=== PATIENT | male | born 1955 | race Two or more races ===

== ENCOUNTER 2016-06-21 19:54 | Emergency (ER) | payer MEDICAID, OTHER ==
[2016-06-21 20:07] VITALS: BP 139/68
[2016-06-21 21:08] LABS: CHLORIDE,CL 105 mmol/L (98-115); SODIUM,NA 141 mmol/L (136-145)
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
[2016-06-21] MEDS ORDERED: traMADol 50 MG Tab PO ONE (21:24)
[2016-06-21] MEDS ORDERED: traMADol 50 MG Tab ONE (21:28)
== END 2016-06-21 21:45 | disposition home or self-care (01) ==
LOC: KA.ED 19:54
DX: M79.672 Pain in left foot (principal); F10.10 Alcohol abuse, uncomplicated; R60.0 Localized edema; Z87.891 Personal history of nicotine dependence
CPT/HCPCS: 36415; 80053; 85025; 85610; 85730; 99283; A9270; G0480

== ENCOUNTER 2016-10-14 18:31 | Inpatient (IN) | payer MEDICAID, OTHER, SELFPAY ==
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
[2016-10-14] MEDS ORDERED: Sodium Chloride 0.9% 1,000 ML IV ONE (19:08)
[2016-10-14] MEDS ORDERED: Ondansetron 4 MG/2 ML SDV IVPUSH ONE (19:08)
[2016-10-14] MEDS ORDERED: Ondansetron 4 MG/2 ML SDV IV PRN (20:05)
[2016-10-14] MEDS ORDERED: Sodium Chloride 0.9% 5 ML Syringe FLUSH PRN (20:05)
[2016-10-14] MEDS ORDERED: HYDROmorphone 2 MG/ML SDV IVPUSH PRN (20:05)
[2016-10-14] MEDS ORDERED: LORazepam 2 MG/ML SDV IVPUSH PRN (20:09)
[2016-10-14] MEDS: chlordiazePOXIDE 25 MG Cap PO PRN (20:51)
[2016-10-14] MEDS: Sodium Chloride 0.9% 1,000 ML IV SCH (20:52)
[2016-10-15] MEDS ORDERED: Magnesium Hydroxide 400 MG/5 ML Susp 30 ML Cup PO PRN (08:59)
[2016-10-15] MEDS ORDERED: Magnesium Hydroxide 400 MG/5 ML Susp 30 ML Cup PO ONE (09:03)
[2016-10-15] MEDS: Polyethylene Glycol 3350 Powder 17 GM Packet PO SCH (10:22)
[2016-10-15] MEDS: Vitamin B Complex Tab PO SCH (10:23)
[2016-10-15] MEDS: Folic Acid 1 MG Tab PO SCH (10:24)
[2016-10-15] MEDS: Sodium Chloride 1 GM Tab PO SCH ×2 (10:24→21:13)
[2016-10-15] MEDS ORDERED: Sodium Chloride 0.9% 50 ML SDV FLUSH SCH (13:15)
[2016-10-15] MEDS: Iopamidol 612 MG/ML 75 ML Bottle IV ONE ×2 (13:28→16:56)
[2016-10-15] MEDS: Sodium Chloride 0.9% 1,000 ML IV SCH ×2 (13:28→21:17)
--- NOTE | 2016-10-15 13:57 | HP ---
CHIEF COMPLAINT: Nausea and vomiting, not being able to eat for the past week and a half with poor appetite. HISTORY OF PRESENT ILLNESS: The patient states that his daughter and son-in-law had taken him to [place] to go out to eat. He said that he went to the buffet, and he was unable to eat. He could not eat anything, he actually end up throwing up. At that time, the patient's daughter had brought him to the emergency room for evaluation. PAST MEDICAL HISTORY: The patient does have a long history of alcoholism with chronic cirrhosis. MEDICATIONS: Medications the patient takes at home; takes tramadol 50 mg tablets 1 to 2 tablets every six hour as needed for pain, vitamin B complex 1 tablet daily, sodium chloride 1 g twice daily. He takes MiraLAX 17 g daily. He takes Milk of Magnesia as needed. He takes a folic acid 1 mg daily. ALLERGIES: He has no known drug allergies. SOCIAL/PERSONAL HISTORY: The patient does live with family members here in town. He does not work. He drinks alcohol daily. REVIEW OF SYSTEMS: CONSTITUTIONAL: Poor appetite, fatigue, nausea, and vomiting. EYES: No recent visual changes. ENT: No sinus congestion or hoarseness. CARDIOVASCULAR: No chest pain or palpitations. RESPIRATORY: No cough. No shortness of breath. GI: Nausea, vomiting, upset stomach, and poor appetite. : No dysuria or hematuria. MUSCULOSKELETAL: No new bone pain or joint swelling. INTEGUMENTARY: No rash or pruritus. NEUROLOGIC/PSYCHIATRIC: No recent headache or focal weakness. No depressive symptoms. ENDOCRINE: No heat or cold intolerances or polydipsia. HEMATOLOGIC/LYMPHATIC: No excessive bruising or lymph node swelling. ALLERGIC/IMMUNOLOGIC: No hives or recurrent infections. PHYSICAL EXAMINATION: GENERAL: This is a male, in no acute distress. He has jaundiced sclera and his eyes are very jaundiced. He is very dark complected otherwise. VITAL SIGNS: Temperature is 98.5, pulse is 60, blood pressure is 102/66, respiratory rate 20, and oxygen saturations 98% on room air. HEENT: Head is normocephalic. EOMs are intact. Pupils are equal, round, and reactive to light and accommodation. Bilateral tympanic membranes are intact. Nose is clear. No pharyngeal erythema. NECK: No JVD. Trachea midline. Neck is supple. LUNGS: Clear to auscultation through all lung nguyen. Slightly diminished at bilateral bases. CARDIAC: Regular rate and rhythm. No murmurs identified. ABDOMEN: Distended, semi-firm. He does have ascites. Bowel sounds are distant. EXTREMITIES: Full range of motion. No joint effusions noted. NEUROLOGIC: Grossly intact. DIAGNOSTIC: The patient's lab work that was obtained in the emergency room; CBC showed a white count in the normal range at 8.1, hemoglobin 9.6. The patient's PT was 33.7, INR was 3.2, PTT was 35.3. Sodium was 126, chloride 94, creatinine is 1.34. Total bilirubin was 15.2. Alkaline phosphatase 132, albumin 1.96. Lipase is 103. Repeat lab work that was obtained today on 10/15/2016; CBC showed a white count slightly elevated at 10.6, hemoglobin low at 8.4, and platelet count low at 61. PT was 35.5, INR was 3.3. Sodium 129. Creatinine 1.46. Corrected calcium was 9.3. The patient's albumin is low at 1.7. Amylase is low today at 16. Total protein was low at 5.7, otherwise his other labs are unremarkable. Urinalysis was not able to be collected due to fecal matter within the urine. IMPRESSION/PLAN: 1. Nausea and vomiting with incontinence of stool. Plan: I am going to obtain an abdominal x-ray today, flat and upright. The patient has a history of constipation. I need to advance his diet to diet as tolerated. We are going to give him 30 mL of Milk of Magnesia today, also he will continue to have Zofran IV as needed for nausea. He states that his nausea is doing much better today. 2. Hyponatremia. Plan: The patient's sodium level is slightly improved from yesterday, yesterday it was 126, today it is 129. We will continue with 1 g sodium chloride tablets twice daily. We will also continue with IV hydration of normal saline at 125 mL/h. The patient was given IV fluids in the emergency room, normal saline. 3. Chronic cirrhosis secondary to alcoholism. Plan: Continue with alcohol withdrawal precautions. We will also continue with folic acid 1 mg daily along with vitamin B complex 1 tablet daily. He does take some tramadol as needed. 4. Alcohol withdrawal. Plan: We will give the patient Ativan as needed for withdrawal symptoms along with Librium as needed. /[id number]/DARIANL
[2016-10-15] MEDS ORDERED: Phytonadione 5 MG Tab PO ONE (17:28)
[2016-10-15] MEDS: Pantoprazole 40 MG Vial IVPUSH SCH (17:53)
[2016-10-15] MEDS: predniSONE 20 MG Tab PO SCH (17:53)
[2016-10-15] MEDS ORDERED: Phytonadione 1 MG/0.5 ML Syringe SUBCUT ONE (18:00)
[2016-10-15] MEDS: traMADol 50 MG Tab PO PRN (18:28)
[2016-10-15] MEDS: Ciprofloxacin 500 MG Tab PO SCH (21:13)
[2016-10-15] MEDS: Metoprolol Tartrate 25 MG Tab PO SCH (21:13)
[2016-10-16] MEDS: Sodium Chloride 0.9% 1,000 ML IV SCH ×2 (05:05→18:53)
[2016-10-16] MEDS: Pantoprazole 40 MG Vial IVPUSH SCH (06:35)
[2016-10-16 08:12] LABS: CHLORIDE,CL 96 mmol/L (98-115); SODIUM,NA 124 mmol/L (136-145)
[2016-10-16] MEDS ORDERED: Magnesium Hydroxide 400 MG/5 ML Susp 30 ML Cup PO PRN (09:00)
[2016-10-16] MEDS: Polyethylene Glycol 3350 Powder 17 GM Packet PO SCH (09:25)
[2016-10-16] MEDS: Ciprofloxacin 500 MG Tab PO SCH (09:26)
[2016-10-16] MEDS: Folic Acid 1 MG Tab PO SCH (09:26)
[2016-10-16] MEDS: Sodium Chloride 1 GM Tab PO SCH ×4 (09:26→21:04)
[2016-10-16] MEDS: Vitamin B Complex Tab PO SCH (09:26)
[2016-10-16] MEDS: Metoprolol Tartrate 25 MG Tab PO SCH ×2 (09:27→21:04)
[2016-10-16] MEDS ORDERED: Albumin 25% 100 ML IV ONE (10:30)
--- NOTE | 2016-10-16 12:30 | PN ---
10/16/2016 PATIENT NAME: LUL STEEN SUBJECTIVE: This is a 61-year-old patient who was admitted with nausea and vomiting, abdominal pain. He does have a long history of alcoholism and has chronic cirrhosis. The patient states today he was able to eat a little bit. He says he just eats a little bit at a time. Otherwise, he gets a little nauseated. He says his stomach does not hurt like it did before. He said yesterday his stomach hurts so bad, he could barely even touch his stomach. He denies throwing up since being in the hospital. OBJECTIVE: VITAL SIGNS: Today, temperature is 97.9, pulse is 69, blood pressure is 97/63, respiratory rate is 14, oxygen saturation on room air is 97%. GENERAL: The patient is jaundice in his sclerae of his eyes. He is very dark complected. Overall, he is in no acute distress. RESPIRATORY: Lungs sounds are clear throughout lung nguyen. CARDIAC: Heart tones are distant, but regular rate and rhythm. ABDOMEN: Moderate amount of ascites. Bowel sounds are distant. LABORATORY DATA: The patient's lab work today CBC shows white count within normal range at 9.1, hemoglobin is 8.6, platelet count is 58. The patient's PT is 32.8, INR is 3.1. The patient's chemistry panel shows a sodium low at 124, potassium normal range 4.4, chloride 96, BUN 26, creatinine 1.2, GFR greater than 60, glucose is 154, calcium is 7.2. Total bilirubin is 13.8, AST is 76, ALT 64, alkaline phosphatase 105, total protein is 6.1, albumin is 1.73. The patient's urinalysis from yesterday was brandy, cloudy, positive for nitrites, large amount of bilirubin, many bacteria. IMPRESSION AND PLAN: 1. Chronic cirrhosis with portal hypertension with nausea and vomiting secondary to alcoholism. Plan: The patient had a CT of the abdomen and pelvis performed yesterday. The impression per Radiology reads as follows: Increased ascites since last year, nonspecific tiny hepatic hypodensities not seen previously or the followup, portal hypertension, portal mesenteric venous varicosities in the collateral vessels. No portal mesenteric venous thrombosis seen. Nonspecific thickening of wall of large and small bowel. This is likely an expression of portal mesenteric venous hypertension. This was read by Dr. Tessa Foreman, Radiology. The patient was given 30 mL of milk of magnesia yesterday. He can have Zofran as needed for nausea. He has not thrown up since he has been in the hospital. Restarted him on metoprolol tartrate 12.5 mg twice daily to help with portal hypertension. We will also start the patient on prednisone 20 mg daily to help decrease the patient's bilirubin. We are going to give the patient albumin IV today 25% 100 mL. We also did give the patient vitamin K 1 mg subcutaneously yesterday to help with INR. We will continue with diet as tolerated. We are going to decrease his IV fluids, normal saline to 30 mL an hour. Repeat CBC and CMP tomorrow morning. 2. Hyponatremia. Plan: The patient's sodium level lower today than yesterday. Yesterday it was 129, today it is 124. We are going to increase the patient's sodium chloride tablet to 1 g four times a day. We are going to decrease normal saline to 30 mL an hour. Repeat comprehensive metabolic panel tomorrow morning. 3. Chronic cirrhosis. Plan: Continue the patient folic acid 1 mg daily along with vitamin B complex one tablet daily. He does have some ascites and abdominal pain. He can have some tramadol 50 mg as needed for pain. 4. Alcohol withdrawal. Plan: Continue with alcohol withdrawal precautions. We do have Ativan IV ordered as needed along with Librium as needed for alcohol withdrawal symptoms. 5. Urinary tract infection. Plan: The patient's urinalysis came back with many bacteria. We had started him on Cipro 500 mg orally twice daily. His liver function tests are elevated. He is asymptomatic with urinary tract infection. We are going to hold off on antibiotic therapy and discontinue Cipro at this time. 6. Hypoalbuminemia. Plan: The patient's albumin level today is low at 1.73. We are going to give him 100 mL of 25% albumin today. Recheck comprehensive metabolic panel tomorrow. /[id number]/MODL MTDD
[2016-10-16] MEDS: predniSONE 20 MG Tab PO SCH (17:51)
[2016-10-17] MEDS: Pantoprazole 40 MG Vial IVPUSH SCH (06:20)
[2016-10-17 08:17] LABS: CHLORIDE,CL 97 mmol/L (98-115); SODIUM,NA 126 mmol/L (136-145)
[2016-10-17] MEDS: Vitamin B Complex Tab PO SCH (08:28)
[2016-10-17] MEDS: Sodium Chloride 1 GM Tab PO SCH ×4 (08:28→21:21)
[2016-10-17] MEDS: Folic Acid 1 MG Tab PO SCH (08:28)
[2016-10-17] MEDS: Polyethylene Glycol 3350 Powder 17 GM Packet PO SCH (08:29)
[2016-10-17] MEDS: Metoprolol Tartrate 25 MG Tab PO SCH ×2 (08:29→21:21)
[2016-10-17] MEDS: traMADol 50 MG Tab PO PRN (09:04)
[2016-10-17] MEDS ORDERED: Furosemide 40 MG/4 ML VIAL IVPUSH ONE (10:58)
[2016-10-17] MEDS ORDERED: predniSONE 10 MG Tab PO ONE (12:30)
[2016-10-17] MEDS ORDERED: Albumin 25% 100 ML IV ONE (12:31)
--- NOTE | 2016-10-17 13:37 | PN ---
10/17/2016 PATIENT NAME: LUL STEEN SUBJECTIVE: This is a 61-year-old male patient with a long history of chronic alcoholism with chronic cirrhosis secondary to his alcoholism. The patient was at home. His daughter had taken him out to eat. He stated that he was so nauseated, he could not eat and he ended up throwing up, so his daughter and son- in-law brought him into the emergency room for further evaluation and treatment at that time. Today, the patient states that he still cannot eat very much. He still has some pain on his left side of his abdomen that radiates to his back. He says he can only eat small bites at each time; otherwise, he gets nausea and just does not feel well. OBJECTIVE: VITAL SIGNS: Today, temperature is 99.0, pulse is 74, blood pressure is 100/62, respiratory rate is 20, and oxygen saturation on room air is 96%. ABDOMEN: The patient does have a large amount of ascites to his abdomen. EXTREMITIES: He does have 3+ pitting edema to bilateral lower extremities. HEENT: His eyes are very jaundice. LUNGS: Lung sounds are clear throughout lung nguyen. HEART: Tones are regular rate and rhythm. No murmurs identified. LABORATORY DATA: The patient's lab work today: CBC shows white count within normal range at 7.6, hemoglobin 8.2. Chemistry panel shows sodium low at 126, chloride 97, calcium 7.4, magnesium 2.0, total bilirubin 14.7, AST 75, ALT 61, alkaline phosphatase 108, total protein 6.2, albumin 2.02. IMPRESSION AND PLAN: 1. Chronic cirrhosis with portal hypertension with nausea and vomiting secondary to alcoholism. Plan: The patient's CT of the abdomen showed portal hypertension along with portal mesenteric venous varicosities. Please see report. We are going to continue the patient on beta kyle, metoprolol tartrate 12.5 mg twice daily to help with portal hypertension. Also, we are going to give the patient 30 mg of prednisone today to help with the patient's bilirubin, it is elevated at 14.7. The patient's albumin also continued to be low today at 2.02. We will give the patient another dose of albumin 25% 100 mL today. Recheck lab work tomorrow morning. We are going to discontinue the patient's IV fluids at this time. The patient's weight is up. We are going to give one time dose of Lasix 40 mg IV today. 2. Hyponatremia. The patient's sodium level today is still low at 126. We will continue with sodium chloride one tablet which is 1 g four times daily. Repeat CMP tomorrow morning. We discontinue the patient's IV fluids. 3. Chronic cirrhosis. Plan: Continue the patient on folic acid 1 mg daily along with vitamin B complex one tablet daily. The patient does have some abdominal pain due to the ascites. We will continue with tramadol as needed for pain. 4. Alcohol withdrawal. Plan: Continue the patient on alcohol withdrawal precautions. He does have some Ativan and Librium ordered as needed for withdrawal symptoms. 5. Urinary tract infection. Plan: The patient's urinalysis did come back with many bacteria. We are going to hold off on treating because he is asymptomatic at this time and antibiotics treat do get metabolized at the liver. 6. Hypoalbuminemia. Plan: The patient's albumin level continues to be low today at 2.02. We are going to give the patient a one-time 100 mL cocktail of 25% albumin today and recheck a CMP tomorrow morning. /[id number]/MODL
[2016-10-17] MEDS: predniSONE 20 MG Tab PO SCH (17:04)
[2016-10-18] MEDS: Pantoprazole 40 MG Vial IVPUSH SCH (06:14)
[2016-10-18 08:10] LABS: CHLORIDE,CL 98 mmol/L (98-115); SODIUM,NA 128 mmol/L (136-145)
[2016-10-18] MEDS: Folic Acid 1 MG Tab PO SCH (08:35)
[2016-10-18] MEDS: Vitamin B Complex Tab PO SCH (08:35)
[2016-10-18] MEDS: Sodium Chloride 1 GM Tab PO SCH ×4 (08:35→21:26)
[2016-10-18] MEDS: Metoprolol Tartrate 25 MG Tab PO SCH ×2 (08:35→21:26)
[2016-10-18] MEDS: Polyethylene Glycol 3350 Powder 17 GM Packet PO SCH (08:35)
[2016-10-18] MEDS ORDERED: Albumin 25% 100 ML IV ONE (10:02)
[2016-10-18] MEDS: Furosemide 40 MG/4 ML VIAL IVPUSH SCH ×2 (10:16→21:38)
[2016-10-18] MEDS: Ondansetron 4 MG/2 ML SDV IVPUSH SCH ×3 (10:16→21:44)
[2016-10-18] MEDS ORDERED: Lactulose Soln 10 GM/15 ML 30 ML UD Cup PO ONE (11:00)
--- NOTE | 2016-10-18 11:15 | PN ---
10/18/2016 PATIENT NAME: LUL STEEN SUBJECTIVE: This is a 61-year-old gentleman who was brought to the hospital with concerns about nausea and vomiting and poor appetite, unable to keep any food down or eat at all. The patient does have a long history of alcoholism with chronic cirrhosis. Today, the patient states that he still has some stomachache off and on. He says his appetite is really poor. He says he can only eat a couple bites, then he gets really nauseated, and he cannot eat anymore. He says he has been up walking a little bit in the [place]. He does feel a little better overall than he did before. OBJECTIVE: VITAL SIGNS: Today, temperature is 98.8, pulse is 66, blood pressure is 99/58, respiratory rate 20, oxygen saturation on room air is 96%. GENERAL: This is a dark complected, man in no acute distress. HEENT: Sclerae of his eyes are quite jaundiced. HEART: Tones are regular rate and rhythm. No murmurs identified. LUNGS: Sounds are clear throughout lung nguyen. ABDOMEN: Distended with lots of ascites. It is not taut or tight at this time. He does have a little bit of tenderness with deep palpation to his abdomen, otherwise no pain. EXTREMITIES: The patient does have pitting edema to his left lower extremity. Mild pitting edema to his right lower extremity. Darwin stockings are in place. LABORATORY DATA: The patient's lab work today CBC shows white count within normal range at 6.5, hemoglobin is low at 8.0, platelet count is 63. Chemistry panel shows sodium low at 128, calcium is 7.7, total bilirubin is elevated at 15.8, AST is 71, ALT is normal range at 64, and alkaline phosphatase normal range at 111. The patient's ammonia level today is just slightly elevated at 35. Total protein low at 6.1, albumin low at 2.18. IMPRESSION AND PLAN: 1. Chronic cirrhosis with portal hypertension with recent nausea and vomiting. Poor appetite secondary to chronic alcoholism. Plan: The patient's CT of the abdomen showed portal hypertension along with portal mesenteric venous varicosities. Please see full report for further details. We are going to continue the patient on beta kyle, metoprolol tartrate 12.5 mg twice daily to help with portal hypertension. Also, we will continue with prednisone 30 mg daily to help reduce the patient's bilirubin that continued to be elevated today at 15.8. The patient's albumin also continues to be low today at 2.18. We will give the patient another bottle of albumin 25% 100 mL today and recheck lab work tomorrow morning. The patient's I's and O's are very positive, and he is up some weight, will order daily weights. We are going to increase the patient's Lasix, he got 40 mg IV yesterday, we are going to give him Lasix 40 mg IV twice daily. Also, continue with Protonix 40 mg IV daily. 2. Hyponatremia. Plan: The patient's sodium level continued to be low today at 128. We will continue with sodium chloride 1 g tablet four times a day and recheck a comprehensive metabolic panel. The patient has no IV fluids at this time. 3. Chronic cirrhosis. Plan: Continue the patient with folic acid 1 mg daily along with vitamin B complex one tab daily. The patient's ascites seems to be staying about the same. He does have some tramadol ordered as needed for pain. 4. Alcohol withdrawal syndrome. Plan: Continue the patient on alcohol withdrawal precautions. He does have Ativan along with Librium ordered as needed for withdrawal symptoms. 5. Urinary tract infection. Plan: The patient's urinalysis did come back showing with many bacteria. We are holding off on treating with antibiotic therapy at this time due to antibiotics being metabolized by the liver. The patient is asymptomatic and complains of no burning with urination. 6. Hypoalbuminemia. Plan: The patient's albumin level today continues to be low at 2.18. We will give the patient albumin 25% 100 mL IV cocktail today and recheck CMP in the morning. 7. Elevated ammonia level. Plan: The patient's ammonia level today is slightly elevated at 35. We will give the patient a one time dose of lactulose 20 g p.o. one time and also to help with the patient's appetite, we are going to schedule patient's Zofran 4 mg IV every six hours schedule. /[id number]/MODL MTDD
[2016-10-18] MEDS: predniSONE 20 MG Tab PO SCH (17:34)
[2016-10-19] MEDS: Ondansetron 4 MG/2 ML SDV IVPUSH SCH ×4 (04:04→21:29)
[2016-10-19] MEDS: Pantoprazole 40 MG Vial IVPUSH SCH (06:16)
[2016-10-19 07:53] LABS: CHLORIDE,CL 99 mmol/L (98-115); SODIUM,NA 130 mmol/L (136-145)
[2016-10-19] MEDS: Folic Acid 1 MG Tab PO SCH (08:05)
[2016-10-19] MEDS: Polyethylene Glycol 3350 Powder 17 GM Packet PO SCH (08:05)
[2016-10-19] MEDS: Furosemide 40 MG/4 ML VIAL IVPUSH SCH ×2 (08:05→21:27)
[2016-10-19] MEDS: Vitamin B Complex Tab PO SCH (08:05)
[2016-10-19] MEDS: Sodium Chloride 1 GM Tab PO SCH ×2 (08:05→21:30)
[2016-10-19] MEDS: Metoprolol Tartrate 25 MG Tab PO SCH (09:50)
--- NOTE | 2016-10-19 12:14 | PN ---
10/19/2016 PATIENT NAME: LUL STEEN CHIEF COMPLAINT: Only mildly nauseated, this has improved. He was given Zofran yesterday. He has been walking some. He is doing quite a bit better on his ambulatory status. Holding beta kyle this morning due to slightly low blood pressure, otherwise he is lucid. BRIEF HISTORY: This patient with long-standing alcoholism and cirrhosis of the liver. He came in on the day of admission due to anorexia. He could not eat anything. He had some vomiting, so he was brought in through the emergency room for further evaluation. He also had significant hyponatremia. PHYSICAL EXAMINATION: VITAL SIGNS: The patient is a full code. His weight today is 151 pounds, undetermined if this is accurate weight or not, as the previous one was estimated; however, the patient is approximately 7 L positive in fluids. However, he states he has been having inadequate intake and output measurements. Blood pressure 100/55, temperature 98.3, heart rate 60, O2 saturation 97% on room air, respiratory rate 20. GENERAL: The patient is alert and oriented. EYE: Significantly jaundiced. CV: Regular rate and rhythm. No murmur. LUNGS: Clear to auscultation. ABDOMEN: Positive ascites. EXTREMITIES: Left extremity does have approximately 2+ pitting edema. This has been improved since previous admissions. INTEGUMENTARY: Skin is dry. PSYCHIATRIC: The patient is lucid. LABORATORY DATA: White count 6.6, hemoglobin low at 8.2, hematocrit 23.1, percentage neutrophils 71%, platelet count decreasing now 57,000. However, he was 58,000 on admission, but he was 63,000 yesterday. INR on admission 3.1. Sodium increased now to 130, potassium 3.9, BUN 21, creatinine 0.75. Estimated drug clearance around 88%. Magnesium 2.0, total bilirubin is 15.8, AST elevated at 72, ammonia was 35 yesterday, albumin 2.19. IMPRESSION/PLAN: 1. Decompensated liver cirrhosis as evidence of the patient's lab work and jaundice. More specific as evidence of jaundice and hypoalbuminemia. The patient's code status needs to be addressed, alcoholic-induced with portal hypertension. We will see if I can add Aldactone to continue re-coping with ascites. Hold beta-kyle at this time. No evidence of GI hemorrhage. 2. Hyponatremia, likely due to decompensated liver cirrhosis and fluid overload. We will add Aldactone. Continue with Lasix. Reduce sodium chloride from 1 g q.i.d. to 1 g b.i.d. 3. Thrombocytopenia. Platelets 57,000. Likely due to portal hypertension and platelet sequestration. Does have to be monitored for ongoing bleeding as his INR is 3.1. 4. Prolongation of the PT due to hepatic synthetic dysfunction. 5. Hyperbilirubinemia. This is significant around 15.8. We will continue with prednisone. 6. ETOH withdrawal prophylaxis. Continue with Librium and Ativan p.r.n. 7. Asymptomatic bacteria. Holding off on any antibiotics at this time. 8. Rule out hepatic encephalopathy. Ammonia level around 35. He did receive lactulose one time. We will monitor for any trends in his altered mental status. OVERALL PLAN: Due to the patient's decompensated liver cirrhosis, the patient does have a very poor outcome due to his liver cirrhosis. DNR status will have to be addressed. I do recommend hospice referral. I will speak with consultation with social work therapist. In the meantime, add Aldactone to assess with reducing the ascites and thus reduce his hypervolemic state, thereby secondary gain due to increasing his sodium level. We will monitor for ongoing decompensated liver function. May need platelets. /[id number]/MODL
[2016-10-19] MEDS: predniSONE 20 MG Tab PO SCH (18:10)
[2016-10-19] MEDS: Potassium Chloride 10 MEQ Tab.ER PO SCH (19:38)
[2016-10-19] MEDS: Spironolactone 25 MG Tab PO SCH (19:39)
[2016-10-19] MEDS: chlordiazePOXIDE 25 MG Cap PO PRN (21:30)
[2016-10-19] MEDS: traMADol 50 MG Tab PO PRN (21:30)
[2016-10-20] MEDS: Ondansetron 4 MG/2 ML SDV IVPUSH SCH ×3 (04:30→15:35)
[2016-10-20] MEDS: Pantoprazole 40 MG Vial IVPUSH SCH (06:06)
[2016-10-20 08:00] LABS: CHLORIDE,CL 99 mmol/L (98-115); SODIUM,NA 132 mmol/L (136-145)
[2016-10-20] MEDS: Spironolactone 25 MG Tab PO SCH ×2 (08:28→20:49)
[2016-10-20] MEDS: Folic Acid 1 MG Tab PO SCH (08:28)
[2016-10-20] MEDS: Furosemide 40 MG/4 ML VIAL IVPUSH SCH (08:28)
[2016-10-20] MEDS: Sodium Chloride 1 GM Tab PO SCH ×2 (08:28→20:49)
[2016-10-20] MEDS: Vitamin B Complex Tab PO SCH (08:28)
[2016-10-20] MEDS: Potassium Chloride 10 MEQ Tab.ER PO SCH (08:28)
[2016-10-20] MEDS: Polyethylene Glycol 3350 Powder 17 GM Packet PO SCH (08:28)
--- NOTE | 2016-10-20 10:58 | PCM.PN ---
[id number] of Systems General: Reports: Weakness, Fatigue HEENT: Reports: No Symptoms Pulmonary: Reports: No Symptoms Cardiovascular: Reports: No Symptoms Gastrointestinal: Reports: Other ( patient does have abdominal distention and is having mild discomfort. Also some nausea) Genitourinary: Reports: No Symptoms Musculoskeletal: Reports: No Symptoms Skin: Reports: Pruritis (Patient has severe jaundice and has pruritus.) Neurological: Reports: No Symptoms - Patient Data Vitals - Most Recent: Last Vital Signs Temp 98.1 F 10/20/16 06:27 Pulse 61 10/20/16 06:27 Resp 20 10/20/16 06:27 BP 110/69 10/20/16 06:27 Pulse Ox 97 10/20/16 06:30 Weight - Most Recent: 147 lb 11.2 oz I&O - Last 24 Hours: Intake & Output 10/19/16 10/20/16 10/20/16 22:59 06:59 14:59 Intake Total 120 120 Output Total 600 800 Balance -480 -680 Lab Results Last 24 Hours: Laboratory Results - last 24 hr 10/20/16 10/20/16 Range/Units 07:10 07:10 WBC 10.3 H (5.0-10.0) 10^3/uL RBC 2.10 L (4.50-6.00) 10^6/uL Hgb 8.1 L (13.0-17.0) g/dL Hct 23.3 L (40.0-52.0) % MCV 110.7 H (82.0-92.0) fL MCH 38.6 H (27.0-31.0) pg MCHC 34.9 (32.0-36.0) g/dL RDW 15.5 H (11.5-14.5) % Plt Count 63 L (150-300) 10^3/uL MPV 8.2 (7.4-10.4) fL Neut % (Auto) 70.6 H (50.0-70.0) % Lymph % (Auto) 16.2 L (20.0-40.0) % [place] % (Auto) 12.8 H (2.0-8.0) % Eos % (Auto) 0.2 L (1.0-3.0) % Baso % (Auto) 0.2 (0.0-1.0) % Neut # (Auto) 7.3 H (2.5-7.0) 10^3/uL Lymph # (Auto) 1.7 (1.0-4.0) 10^3/uL [place] # (Auto) 1.3 H (0.1-0.8) 10^3/uL Eos # (Auto) 0.0 L (0.1-0.3) 10^3/uL Baso # (Auto) 0.0 (0.0-0.1) 10^3/uL Sodium 132 L (136-145) mmol/L Potassium 3.5 (3.3-5.3) mmol/L Chloride 99 (98-115) mmol/L Carbon Dioxide 26.5 (21.0-32.0) mmol/L BUN 19 (6-25) mg/dL Creatinine 0.75 (0.51-1.17) mg/dL Est Cr Clr Drug Dosing 87.69 mL/min Estimated GFR (MDRD) > 60 mL/min Glucose 140 H (70-110) mg/dL Calcium 7.6 L (8.7-10.3) mg/dL Total Bilirubin 14.4 H (0.2-1.0) mg/dL AST 73 H (15-37) U/L ALT 68 (12-78) U/L Alkaline Phosphatase 114 (46-116) IU/L Total Protein 5.9 L (6.4-8.2) g/dL Albumin 2.05 L (3.00-4.80) g/dL Med Orders - Current: Current Medications Chlordiazepoxide HCl (Librium) 25 mg PO TID PRN PRN Reason: Agitation Last Admin: 10/19/16 21:30 Dose: 25 mg Folic Acid (Folic Acid) 1 mg PO DAILY [facility] Last Admin: 10/20/16 08:28 Dose: 1 mg Furosemide (Lasix) 40 mg IVPUSH BID [facility] Last Admin: 10/20/16 08:28 Dose: 40 mg Hydromorphone HCl (Dilaudid) 0.5 mg IVPUSH Q2H PRN PRN Reason: Pain (severe 7-10) Lorazepam (Ativan) 1 mg IVPUSH Q4H PRN PRN Reason: Agitation Magnesium Hydroxide (Milk Of Magnesia) 30 ml PO DAILY PRN PRN Reason: Constipation Metoprolol Tartrate (Lopressor) 12.5 mg PO BID [facility] Last Admin: 10/19/16 09:50 Dose: Not Given Ondansetron HCl (Zofran) 4 mg IVPUSH Q6H [facility] Last Admin: 10/20/16 04:30 Dose: 4 mg Pantoprazole Sodium (Protonix Iv) 40 mg IVPUSH ACBREAKFAST [facility] Last Admin: 10/20/16 06:06 Dose: 40 mg Polyethylene Glycol (Miralax) 17 gm PO DAILY [facility] Last Admin: 10/20/16 08:28 Dose: 17 gm Potassium Chloride (Klor-Con 10) 10 meq PO DAILY [facility] Last Admin: 10/20/16 08:28 Dose: 10 meq Prednisone (Prednisone) 30 mg PO DAILY@1800 [facility] Last Admin: 10/19/16 18:10 Dose: 30 mg Sodium Chloride (Syrex Flush) 5 ml FLUSH Q8HR PRN PRN Reason: Keep Vein Open Sodium Chloride (Sodium Chloride) 1 gm PO BID [facility] Last Admin: 10/20/16 08:28 Dose: 1 gm Spironolactone (Aldactone) 25 mg PO BID [facility] Tramadol HCl (Ultram) 50 - 100 mg PO Q6H PRN PRN Reason: Pain Last Admin: 10/19/16 21:30 Dose: 100 mg Vitamin B Complex (Vitamin B Complex) 1 each PO DAILY [facility] Last Admin: 10/20/16 08:28 Dose: 1 each Discontinued Medications Ciprofloxacin (Ciprofloxacin Hcl) 500 mg PO BID [facility] Stop: 10/20/16 21:01 Last Admin: 10/16/16 09:26 Dose: 500 mg Furosemide (Lasix) 40 mg IVPUSH NOW ONE Stop: 10/17/16 10:59 Last Admin: 10/17/16 11:58 Dose: 40 mg Sodium Chloride (Normal Saline) 1,000 mls @ 999 mls/hr IV .BOLUS ONE Stop: 10/14/16 20:08 Last Admin: 10/14/16 19:35 Dose: 999 mls/hr Sodium Chloride (Normal Saline) 1,000 mls @ 30 mls/hr IV ASDIRECTED [facility] Last Admin: 10/16/16 18:53 Dose: 125 mls/hr Albumin Human (Flexbumin 25%) 100 mls @ 100 mls/hr IV ONETIME ONE Stop: 10/16/16 11:29 Last Admin: 10/16/16 12:55 Dose: 100 mls/hr Albumin Human (Flexbumin 25%) 100 mls @ 250 mls/hr IV ONETIME ONE Stop: 10/17/16 12:54 Last Admin: 10/17/16 13:17 Dose: 250 mls/hr Albumin Human (Flexbumin 25%) 100 mls @ 50 mls/hr IV ONETIME ONE Stop: 10/18/16 12:01 Last Admin: 10/18/16 10:16 Dose: 50 mls/hr Iopamidol (Isovue-300 (61%)) 75 ml IV ONETIME ONE Stop: 10/15/16 13:07 Last Admin: 10/15/16 16:56 Dose: 75 ml Lactulose (Cephulac) 20 gm PO ONETIME ONE Stop: 10/18/16 11:01 Last Admin: 10/18/16 10:51 Dose: 20 gm Magnesium Hydroxide (Milk Of Magnesia) 30 ml PO DAILY PRN PRN Reason: Constipation Magnesium Hydroxide (Milk Of Magnesia) 30 ml PO ONETIME ONE Stop: 10/15/16 09:04 Last Admin: 10/15/16 10:22 Dose: 30 ml Ondansetron HCl (Zofran) 4 mg IVPUSH ONETIME ONE Stop: 10/14/16 19:09 Last Admin: 10/14/16 19:40 Dose: 4 mg Ondansetron HCl (Zofran) 4 mg IV Q4H PRN PRN Reason: Nausea/Vomiting Phytonadione (Mephyton) 10 mg PO ONETIME ONE Stop: 10/15/16 17:29 Last Admin: 10/15/16 17:54 Dose: Not Given Phytonadione (Aquamephyton) 1 mg SUBCUT ONETIME ONE Stop: 10/15/16 18:01 Last Admin: 10/15/16 18:28 Dose: 1 mg Prednisone (Prednisone) 20 mg PO DAILY@1800 [facility] Last Admin: 10/17/16 17:04 Dose: 20 mg Prednisone (Prednisone) 10 mg PO ONETIME ONE Stop: 10/17/16 12:31 Last Admin: 10/17/16 13:15 Dose: 10 mg Sodium Chloride (Sodium Chloride) 1 gm PO BID [facility] Last Admin: 10/16/16 09:26 Dose: 1 gm Sodium Chloride (Normal Saline) 50 ml FLUSH ASDIRECTED [facility] Stop: 10/15/16 15:00 Last Admin: 10/15/16 16:56 Dose: 50 ml Sodium Chloride (Sodium Chloride) 1 gm PO QID [facility] Last Admin: 10/19/16 08:05 Dose: 1 gm Spironolactone (Aldactone) 25 mg PO DAILY [facility] Last Admin: 10/20/16 08:28 Dose: 25 mg - Exam General: Alert HEENT: Pupils Equal Neck: Supple Lungs: Clear to Auscultation Cardiovascular: Regular Rate GI/Abdominal Exam: Hepatomegaly (This patient has slight amount of ascites. No tenderness.), Splenomegaly, Other (The patient has mild abdominal distention due to ascites. Hepatosplenomegaly of both present with) Back Exam: Normal Inspection, Full Range of Motion Extremities: Normal Inspection, Normal Range of Motion, Non-Tender, No Pedal Edema, Normal Capillary Refill Neurological: No New Focal Deficit Psy/Mental Status: Alert, Normal Affect, Normal Mood - Problem List Review Problem List Initiated/Reviewed/Updated: Yes - My Orders Last 24 Hours: My Active Orders 10/20/16 21:00 Spironolactone [Aldactone] 25 mg PO BID - Assessment Assessment:: #1 jaundice: this is due to hepatic alcoholic cirrhosis. Slightly down from yesterday. - Plan Plan:: plan for this patient would be to keep him in the hospital one more day. He made some changes in his medication dosages. We'll see how that effects his clinical care. In the meantime we'll continue close observation this patient. His overall prognosis is somewhat today because he has end-stage cirrhosis of the liver causing jaundice. In spite of being told several times to give her pitching he has continued to use alcohol. After discharge from the hospital tomorrow hopefully we will follow him in the clinic.
[2016-10-20] MEDS ORDERED: Lactulose Soln 10 GM/15 ML 30 ML UD Cup PO ONE (11:18)
--- NOTE | 2016-10-20 12:58 | PN ---
10/20/2016PATIENT NAME: LUL STEEN Progress report is being performed for this patient today. SUBJECTIVE: The patient states that he is feeling a little bit better. Abdominal distention seems to be improved. He is still quite jaundiced. OBJECTIVE: VITAL SIGNS: Are as follows, temperature is 98.1, weight is 147 pounds, blood pressure is 110/69 and intake and output the last 24 hours is 940 mL in and approximately 400 mL out. HEAD: Negative. HEART: Stable. LUNGS: Stable. ABDOMEN: Soft. There is definitely some degree of ascites present. Hepatosplenomegaly is present. EXTREMITIES: Normal. NEUROLOGIC: Intact. LABORATORY DATA: His hemoglobin is 8.1, yesterday it was 8.2 and white count 10.3. Sodium is 132, potassium is 3.5, sodium chloride are normal. Glucose 140, total bilirubin is 14.4, yesterday was 15.8, and his AST was 73, about the same as yesterday which was 72. Total protein 5.9, albumin is 2.05. FINAL DIAGNOSES: 1. Severe jaundice due to alcoholic hepatitis and cirrhosis. The patient's condition is slightly stable as far as ascites is concerned. He is asking about going home. We will further reevaluate him and decide about his discharge today. He is currently receiving Librium on a p.r.n. basis; folic acid daily; Lasix 40 b.i.d.; we may increase his spironolactone to 25 mg b.i.d. and Lasix 40 mg once a day p.o. We will continue on prednisone 30 mg for a couple more days and see if this will help him. So far, it has not helped a great deal. Continue Protonix or Prevacid daily p.o. He did receive one dose of lactulose yesterday. We will repeat that same dose again to help him with his elevated ammonia levels. Continue magnesium on a p.r.n. basis; metoprolol 12.5 mg daily to help with his varices. We will continue with MiraLAX 17 g daily and potassium chloride will be increased to 10 mEq b.i.d. for his hypokalemia. 2. Hypokalemia. We will increase potassium 10 mEq b.i.d. 3. Elevated ammonia level. We will give him lactulose today also. 4. Varices. We will continue metoprolol. 5. Ascites. We will increase his spironolactone to 25 mg b.i.d. and cut back Lasix to 40 mg once a day p.o. /[id number]/MODL
[2016-10-20] MEDS ORDERED: Ondansetron 4 MG/2 ML SDV IVPUSH PRN (19:26)
[2016-10-20] MEDS: Metoprolol Tartrate 25 MG Tab PO SCH (20:50)
[2016-10-21 06:39] VITALS: BP 110/73
[2016-10-21] MEDS: Sodium Chloride 1 GM Tab PO SCH (08:05)
[2016-10-21] MEDS: Vitamin B Complex Tab PO SCH (08:05)
[2016-10-21] MEDS: Potassium Chloride 10 MEQ Tab.ER PO SCH (08:05)
[2016-10-21] MEDS: Polyethylene Glycol 3350 Powder 17 GM Packet PO SCH (08:05)
[2016-10-21] MEDS: Folic Acid 1 MG Tab PO SCH (08:06)
[2016-10-21] MEDS: Spironolactone 25 MG Tab PO SCH (08:06)
[2016-10-21] MEDS: Metoprolol Tartrate 25 MG Tab PO SCH (08:06)
[2016-10-21] MEDS ORDERED: Furosemide 40 MG Tab PO SCH (09:00)
[2016-10-21] MEDS ORDERED: Pantoprazole 40 MG Tab.CR PO SCH (09:00)
--- NOTE | 2016-10-22 09:10 | DISCH ---
FINAL DIAGNOSES: Alcoholic liver disease, decompensation; hyponatremia; thrombocytopenia; hyperbilirubinemia; ethyl alcohol abuse; systemic portal hypertension; elevated ammonia level; anemia; hypoalbuminemia. 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 He was admitted after his daughter and son-in-law brought him in. He was in [place] in a restaurant. He just could not eat. He was vomiting, so he was admitted for further workup and diagnostic evaluation. HOSPITAL COURSE: The patient's hospital course went fair. He has some ongoing nausea and vomiting with incontinent of stool. He had an abdominal flat plate and upright, which showed a mild small bowel dilatation, possible early obstruction or possible early ileus. 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 The patient was started on sodium chloride tablets, doing help increase his sodium level, however, I did decrease that as his hyponatremia is related to hypervolemic state. Aldactone was added due to ongoing ascites. His ascites did improve. He did not have any occult GI bleeding although his hemoglobin was low. We did protect him from alcohol withdrawals with Librium and benzodiazepine. We continued with beta blockers. They were continued to prevent any vomiting due to his likely varices. He did have elevated ammonia level around 35, lactulose was given. He had no encephalopathy symptoms. He was alert and lucid throughout hospital stay. He did have a urinary tract infection. He was placed on Cipro 500 mg p.o. b.i.d., however, due to his rising liver function, Cipro was stopped since he was asymptomatic on his UTI. The patient did give a one time albumin level. He had less edema in his lower extremities. He was on diuretics, however, that was increased. He was placed on intake and output. He was given folic acid, and along with vitamin B complex. For his thrombocytopenia, we monitored his platelets, they did decrease down to 57,000, however, even though he had elevated INR, he had no active bleeding. We did place him on corticosteroids, however, very little improvement in his liver function tests, so that was discontinued. Vital signs on discharge; blood pressure 110/73, temperature 97.6, heart rate 62, O2 sats 99%, respiratory rate 20. LABS: Dated 10/20/2016; white count 10.3, hemoglobin 8.1, hematocrit 23.3, percentage neutrophils 70%, platelets slightly increased to 63,000. Sodium improved to 135, potassium 3.5, BUN 19, creatinine 0.75, albumin 2.05, total bilirubin slightly improved at 14.4, AST twice the elevation at 73, ALT normal, alk phos is normal, ammonia level was 35 on 10/18/2016. Microbiology report none. MEDICATION ADJUSTMENTS: 1. Zinc 50 mg p.o. daily. 2. Lactulose 30 mL p.o. daily. 3. Discontinue milk of magnesia. 4. Spironolactone 25 mg p.o. b.i.d. DISPOSITION: The patient will be discharged from the hospital. He will follow up next week with myself or Dr. Marky Scott. Encouraged family to be there. The patient is in serious or poor condition due to acute decompensated ALD. He was strongly advised to quit drinking. He will follow up next week. Considerations at followup hospice referral, discussion, discussed his DNR status, assess liver functions, assess hemoglobin. MEDICAL DECISION MAKIN minutes was spent on this discharge planning and process. /[id number]/MODL MTDD
== END 2016-10-21 12:10 | disposition home or self-care (01) | DRG 433 ==
LOC: KA.ED 18:31 → KA.MS 20:10
PROVIDERS: ADMIT Physician Assistant Medical; ATTEND Physician Assistant
DX: K70.31 Alcoholic cirrhosis of liver with ascites (principal); F10.239 Alcohol dependence with withdrawal, unspecified; E87.1 Hypo-osmolality and hyponatremia; N39.0 Urinary tract infection, site not specified; I85.10 Secondary esophageal varices without bleeding; E72.20 Disorder of urea cycle metabolism, unspecified; K76.6 Portal hypertension; D69.6 Thrombocytopenia, unspecified; R11.2 Nausea with vomiting, unspecified; Z79.899 Other long term (current) drug therapy; Z87.891 Personal history of nicotine dependence; E87.6 Hypokalemia
CPT/HCPCS: 36415; 74020; 74177; 80053; 81001; 82140; 82150; 83690; 83735; 85025; 85610; 85730; 96361; 96374; 99285; A9270-GY; C9113; J1940; J2405; J7030; P9047; Q9967

== ENCOUNTER 2016-10-24 15:00 | Emergency (ER) | payer MEDICAID, OTHER ==
[2016-10-24] MEDS ORDERED: Sodium Chloride 0.9% 5 ML Syringe FLUSH PRN (15:47)
[2016-10-24 16:03] VITALS: BP 105/69
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
[2016-10-24 16:33] LABS: CHLORIDE,CL 99 mmol/L (98-115); SODIUM,NA 134 mmol/L (136-145)
[2016-10-24] MEDS ORDERED: Ondansetron 4 MG/2 ML SDV IVPUSH ONE (16:53)
== END 2016-10-24 19:00 | disposition home or self-care (01) ==
LOC: KA.ED 15:00
DX: K70.30 Alcoholic cirrhosis of liver without ascites (principal); F10.10 Alcohol abuse, uncomplicated; R17 Unspecified jaundice; J45.909 Unspecified asthma, uncomplicated; F41.9 Anxiety disorder, unspecified; Z87.891 Personal history of nicotine dependence
CPT/HCPCS: 74020; 80053; 81001; 82140; 82150; 83690; 85025; 85610; 85730; 96374; 99284; J2405